=== PATIENT | female | born 1965 | race Caucasian/White ===

== ENCOUNTER 2017-10-16 16:18 | Inpatient (IN) | payer BC ==
[~2017-10-16] VITALS: Ht 167.6 cm; Wt 100.0 kg
[~2017-10-16 16:18] MED LIST: CYCL-1 PO; HYDR-569 PO
[2017-10-16 17:37] LABS: BASOPHILS % (AUTO) 0.2 % (0-1); EOSINOPHILS # (AUTO) 0.3 X10'3 (0-0.9); EOSINOPHILS % (AUTO) 2.5 % (0-6); HEMOGLOBIN 12.9 g/dl (12.0-16.0); LYMPHOCYTES # (AUTO) 1.8 X10'3 (1.1-4.8); LYMPHOCYTES % (AUTO) 17.2 % (21-51); MEAN CORPUSCULAR HEMOGLOBIN 30.8 PG (27.0-31.0); MEAN CORPUSCULAR HGB CONC 34.8 % (33.0-36.5); MEAN CORPUSCULAR VOLUME 88.6 FL (78-98); MEAN PLATELET VOLUME 7.4 FL (7.4-10.4); MONOCYTES # (AUTO) 0.5 X10'3 (0-0.9); MONOCYTES % (AUTO) 5.2 % (2-12); NEUTROPHILS # (AUTO) 7.8 X10'3 (1.8-7.7); NEUTROPHILS % (AUTO) 74.9 % (42-75); PLATELET COUNT 321 X10'3 (140-440); RED BLOOD COUNT 4.17 X10'6 (4.20-5.60); RED CELL DISTRIBUTION WIDTH 13.6 % (11.5-14.5); WHITE BLOOD COUNT 10.4 X10'3 (4.5-11.0)
[2017-10-16 17:47] LABS: PARTIAL THROMBOPLASTIN TIME 26 SECONDS (22-32); PROTHROMBIN TIME 10.5 SECONDS (9.0-12.0)
[2017-10-16] MEDS ORDERED: METO-477 PO (17:52)
[2017-10-16] MEDS ORDERED: METF500T PO (17:52)
[2017-10-16] MEDS ORDERED: LOSA25TA96 PO (17:52)
[2017-10-16] MEDS ORDERED: GABA-534 PO (17:52)
[2017-10-16] MEDS ORDERED: OMEP40CA37 PO (17:52)
[2017-10-16 17:53] LABS: ALANINE AMINOTRANSFERASE 30 U/L (12-78); ALBUMIN 3.9 G/DL (3.4-5.0); ALBUMIN/GLOBULIN RATIO 1.1 (1.1-1.5); ALKALINE PHOSPHATASE 84 IU/L (46-116); ANION GAP 9 (8-16); ASPARTATE AMINO TRANSFERASE 15 U/L (10-37); BILIRUBIN,TOTAL 0.3 MG/DL (0.1-1.0); BLOOD UREA NITROGEN 28 MG/DL (7-18); BUN/CREATININE RATIO 28.6 (6.6-38.0); CALCIUM 9.5 MG/DL (8.5-10.1); CHLORIDE 103 MMOL/L (99-107); CREATININE 0.98 MG/DL (0.40-0.90); GLUCOSE 130 MG/DL (70-104); MAGNESIUM 2.2 MG/DL (1.5-2.4); SODIUM 144 MMOL/L (135-145); TOTAL CARBON DIOXIDE 32.3 MMOL/L (24-32); TOTAL PROTEIN 7.4 G/DL (6.4-8.2); eGFR 60 ML/MIN
[2017-10-16 17:57] LABS: POTASSIUM 2.3 MMOL/L (3.5-5.1)
[2017-10-16] MEDS ORDERED: PHEN37.590 PO (18:00)
[2017-10-16] MEDS ORDERED: TOPI25TA15 PO (18:00)
[2017-10-16] MEDS ORDERED: potassium Cl 20 mEq SR tablet PO STA (18:10)
[2017-10-16] MEDS ORDERED: potassium 10mEq/100ml NS w/LIDOcaine (10mg/bag) IV ONE (18:10)
[2017-10-16] MEDS ORDERED: magnesium 2GM in 50ml NS 50 ML IV ONE (18:10)
[2017-10-16] MEDS ORDERED: normal saline 1000ml 1,000 ML IV ONE (18:15)
[2017-10-16 18:28] LABS: CLARITY,URINE Clear (Clear); COLOR,URINE Yellow (Yellow); GLUCOSE, URINE Negative (Neg); KETONES,URINE Negative (Neg); LEUKOCYTE ESTERASE ,URINE Negative (Neg); NITRITES, URINE Negative (Neg); OCCULT BLOOD,URINE Negative (Neg); PROTEIN,URINE Negative (Neg); UROBILINOGEN,URINE 0.2 E.U/dL (0.2-1.0)
[2017-10-16 18:30] LABS: UA COLLECTION TYPE CLN CATCH MIDSTREAM
[2017-10-16] MEDS ORDERED: acetaminophen 325mg tablet PO ONE (21:05)
[2017-10-16 21:41] LABS: PHOSPHORUS 3.5 MG/DL (2.3-4.5)
[2017-10-16] MEDS ORDERED: glucagon, human recombinant 1mg kit SUBCUT PRN (21:45)
[2017-10-16] MEDS ORDERED: magnesium hydroxide 30ml (MOM) UD suspension PO PRN (21:45)
[2017-10-16] MEDS ORDERED: potassium Cl 40MEQ/NS 500ml 500 ML IV PRN ×2 (21:45)
[2017-10-16] MEDS ORDERED: dextrose 50%-water 50ml dispensing syringe IV PRN ×2 (21:45)
[2017-10-16] MEDS ORDERED: dextrose ORAL solution 15 GM/59 ML bottle PO PRN ×2 (21:45)
[2017-10-16] MEDS ORDERED: insulin Lispro (HumaLOG) vial - multi-dose SQ SCH (21:45)
[2017-10-16] MEDS ORDERED: mag hydrox/Alum hydrox/simeth 30ml oral suspension PO PRN (21:45)
[2017-10-16] MEDS ORDERED: acetaminophen 325mg tablet PO PRN ×2 (21:45)
[2017-10-16] MEDS ORDERED: MESSAGE TO PHARMACY PO ONE (21:45)
[2017-10-16] MEDS ORDERED: ondansetron/PF 4mg/2ml inj IV PRN (21:45)
[2017-10-17] MEDS: potassium Cl 20 mEq SR tablet PO PRN ×3 (03:48→15:35)
[2017-10-17 05:56] LABS: BASOPHILS % (AUTO) 0.4 % (0-1); EOSINOPHILS # (AUTO) 0.3 X10'3 (0-0.9); EOSINOPHILS % (AUTO) 3.7 % (0-6); HEMATOCRIT 34.8 % (35.0-45.0); HEMOGLOBIN 11.6 g/dl (12.0-16.0); LYMPHOCYTES # (AUTO) 2.5 X10'3 (1.1-4.8); LYMPHOCYTES % (AUTO) 32.1 % (21-51); MEAN CORPUSCULAR HEMOGLOBIN 30.3 PG (27.0-31.0); MEAN CORPUSCULAR HGB CONC 33.4 % (33.0-36.5); MEAN CORPUSCULAR VOLUME 90.9 FL (78-98); MEAN PLATELET VOLUME 7.5 FL (7.4-10.4); MONOCYTES # (AUTO) 0.6 X10'3 (0-0.9); MONOCYTES % (AUTO) 7.2 % (2-12); NEUTROPHILS # (AUTO) 4.4 X10'3 (1.8-7.7); NEUTROPHILS % (AUTO) 56.6 % (42-75); PLATELET COUNT 283 X10'3 (140-440); RED BLOOD COUNT 3.83 X10'6 (4.20-5.60); RED CELL DISTRIBUTION WIDTH 13.5 % (11.5-14.5); WHITE BLOOD COUNT 7.8 X10'3 (4.5-11.0)
[2017-10-17 06:11] LABS: ALBUMIN 3.1 G/DL (3.4-5.0); ANION GAP 9 (8-16); BLOOD UREA NITROGEN 24 MG/DL (7-18); BUN/CREATININE RATIO 25.8 (6.6-38.0); CALCIUM 8.8 MG/DL (8.5-10.1); CHLORIDE 107 MMOL/L (99-107); CREATININE 0.93 MG/DL (0.40-0.90); GLUCOSE 118 MG/DL (70-104); MAGNESIUM 2.1 MG/DL (1.5-2.4); POTASSIUM 3.2 MMOL/L (3.5-5.1); SODIUM 147 MMOL/L (135-145); TOTAL CARBON DIOXIDE 30.7 MMOL/L (24-32); eGFR 64 ML/MIN
[2017-10-17] MEDS ORDERED: losartan 25mg tablet PO SCH (08:00)
[2017-10-17] MEDS ORDERED: topiramate 25mg tablet PO SCH (08:00)
[2017-10-17] MEDS: gabapentin 400mg capsule PO SCH ×4 (10:39→22:43)
[2017-10-17 11:00] VITALS: BP 132/69
[2017-10-17] MEDS: Potassium Cl inj 20 MEQ in dextrose 5%-water 990 ML IV SCH ×2 (11:40→14:05)
[2017-10-17 15:00] VITALS: BP 114/60
[2017-10-17] MEDS: HYDROcodone/acetaminophen 5mg/325mg tablet PO PRN (15:39)
[2017-10-17 19:00] VITALS: BP 124/62
[2017-10-17] MEDS ORDERED: insulin glargine (Lantus) pen - multi-dose SQ SCH (21:00)
[2017-10-17 23:00] VITALS: BP 126/72
[2017-10-18 03:00] VITALS: BP 101/59
[2017-10-18 06:07] LABS: BASOPHILS % (AUTO) 0.3 % (0-1); EOSINOPHILS # (AUTO) 0.3 X10'3 (0-0.9); HEMATOCRIT 34.6 % (35.0-45.0); HEMOGLOBIN 11.6 g/dl (12.0-16.0); LYMPHOCYTES # (AUTO) 1.7 X10'3 (1.1-4.8); LYMPHOCYTES % (AUTO) 24.6 % (21-51); MEAN CORPUSCULAR HEMOGLOBIN 29.9 PG (27.0-31.0); MEAN CORPUSCULAR HGB CONC 33.6 % (33.0-36.5); MEAN CORPUSCULAR VOLUME 88.8 FL (78-98); MEAN PLATELET VOLUME 7.4 FL (7.4-10.4); MONOCYTES # (AUTO) 0.4 X10'3 (0-0.9); MONOCYTES % (AUTO) 5.8 % (2-12); NEUTROPHILS # (AUTO) 4.5 X10'3 (1.8-7.7); NEUTROPHILS % (AUTO) 65.3 % (42-75); PLATELET COUNT 278 X10'3 (140-440); RED BLOOD COUNT 3.89 X10'6 (4.20-5.60); RED CELL DISTRIBUTION WIDTH 13.5 % (11.5-14.5); WHITE BLOOD COUNT 6.9 X10'3 (4.5-11.0)
[2017-10-18 06:25] LABS: ALBUMIN 3.1 G/DL (3.4-5.0); ANION GAP 9 (8-16); BLOOD UREA NITROGEN 17 MG/DL (7-18); BUN/CREATININE RATIO 22.4 (6.6-38.0); CALCIUM 8.6 MG/DL (8.5-10.1); CHLORIDE 109 MMOL/L (99-107); CREATININE 0.76 MG/DL (0.40-0.90); GLUCOSE 117 MG/DL (70-104); POTASSIUM 3.4 MMOL/L (3.5-5.1); SODIUM 146 MMOL/L (135-145); TOTAL CARBON DIOXIDE 27.9 MMOL/L (24-32); eGFR 81 ML/MIN
[2017-10-18 07:08] VITALS: BP 121/68
[2017-10-18] MEDS: gabapentin 400mg capsule PO SCH (07:13)
[2017-10-18] MEDS: potassium Cl 20 mEq SR tablet PO PRN ×2 (07:13→12:59)
[2017-10-18 11:00] VITALS: BP 133/77
[2017-10-18] MEDS: HYDROcodone/acetaminophen 5mg/325mg tablet PO PRN (12:59)
== END 2017-10-18 13:10 | disposition home or self-care (01) | DRG 640 ==
LOC: ER 16:18 → ED HOLD 21:43 → EDBEDREQ 10-17 07:36 → PCU 3S 10-17 09:00
PROVIDERS: ADMIT Internal Medicine; ATTEND Internal Medicine
DX: E87.6 Hypokalemia (principal); G93.40 Encephalopathy, unspecified; E86.0 Dehydration; E87.0 Hyperosmolality and hypernatremia; I95.9 Hypotension, unspecified; E11.9 Type 2 diabetes mellitus without complications; E86.9 Volume depletion, unspecified; E03.9 Hypothyroidism, unspecified; R20.8 Other disturbances of skin sensation; E87.5 Hyperkalemia; M54.5 Low back pain; G89.29 Other chronic pain; I10 Essential (primary) hypertension; Z79.899 Other long term (current) drug therapy; Z90.710 Acquired absence of both cervix and uterus; Z88.5 Allergy status to narcotic agent
CPT/HCPCS: 36415; 70450; 71045; 80048; 80053; 81003; 83735; 84100; 84132; 84443; 84484; 85025; 85610; 85730; 93005; 93306; 96360; 96361; 99285; J1815; J3480; J7030; J7070

== ENCOUNTER 2020-12-01 18:45 | Inpatient (IN) | payer BC ==
[~2020-12-01] VITALS: Ht 167.6 cm; Wt 113.0 kg
[~2020-12-01 18:45] MED LIST changes: -CYCL-1 PO; +GABA-534 PO; +HYDR-4383 PO; -HYDR-569 PO; +METF500T PO; +OMEP40CA21 PO; +PHEN37.590 PO; +TOPI25TA15 PO
[2020-12-01 19:23] LABS: BASOPHILS # (AUTO) 0.1 X10'3 (0-0.2); BASOPHILS % (AUTO) 0.7 % (0-1); EOSINOPHILS # (AUTO) 0.3 X10'3 (0-0.9); EOSINOPHILS % (AUTO) 3.8 % (0-6); HEMATOCRIT 39.1 % (35.0-45.0); HEMOGLOBIN 12.9 g/dl (12.0-16.0); LYMPHOCYTES # (AUTO) 2.7 X10'3 (1.1-4.8); LYMPHOCYTES % (AUTO) 32.8 % (21-51); MEAN CORPUSCULAR HEMOGLOBIN 29.4 PG (27.0-31.0); MEAN CORPUSCULAR HGB CONC 32.9 g/dL (33.0-36.5); MEAN CORPUSCULAR VOLUME 89.2 FL (78-98); MEAN PLATELET VOLUME 7.3 FL (7.4-10.4); MONOCYTES # (AUTO) 0.6 X10'3 (0-0.9); MONOCYTES % (AUTO) 7.2 % (2-12); NEUTROPHILS # (AUTO) 4.6 X10'3 (1.8-7.7); NEUTROPHILS % (AUTO) 55.5 % (42-75); PLATELET COUNT 318 X10'3 (140-440); RED BLOOD COUNT 4.39 X10'6 (4.20-5.60); RED CELL DISTRIBUTION WIDTH 13.4 % (11.5-14.5); WHITE BLOOD COUNT 8.2 X10'3 (4.5-11.0)
[2020-12-01 19:34] LABS: ALANINE AMINOTRANSFERASE 22 U/L (12-78); ALBUMIN 3.7 G/DL (3.4-5.0); ALBUMIN/GLOBULIN RATIO 1.1 (1.1-1.5); ALKALINE PHOSPHATASE 96 IU/L (46-116); ANION GAP 6 (8-16); ASPARTATE AMINO TRANSFERASE 13 U/L (10-37); BILIRUBIN,TOTAL 0.3 MG/DL (0.1-1.0); BLOOD UREA NITROGEN 13 MG/DL (7-18); BUN/CREATININE RATIO 15.9 (6.6-38.0); CALCIUM 8.8 MG/DL (8.5-10.1); CHLORIDE 108 MMOL/L (99-107); CREATININE 0.82 MG/DL (0.40-0.90); GLUCOSE 105 MG/DL (70-104); POTASSIUM 3.9 MMOL/L (3.5-5.1); SODIUM 144 MMOL/L (135-145); TOTAL CARBON DIOXIDE 29.6 MMOL/L (24-32); TOTAL PROTEIN 7.2 G/DL (6.4-8.2); eGFR 73 ML/MIN
[2020-12-01] MEDS ORDERED: acetaminophen 325mg tablet PO ONE (20:05)
[2020-12-01] MEDS ORDERED: nitroGLYCERIN 0.4mg SUBLingual tab SL STA (20:05)
[2020-12-01] MEDS ORDERED: hydrALAZINE 20mg/ml inj. IV ONE ×2 (20:35→22:30)
[2020-12-01] MEDS ORDERED: temazepam 15mg capsule PO PRN (21:00)
--- NOTE | 2020-12-01 21:28 | NUR ---
This program writer is a float RN. Patients Saline lock established, Hydralazine given slowly IV over one minute. Patient tollerated well. Saline lock was then flushed. Report given to primary RN.
[2020-12-01] MEDS ORDERED: HYDR-3972 PO (21:54)
[2020-12-01] MEDS ORDERED: magnesium hydroxide 30ml (MOM) UD suspension PO PRN (22:05)
[2020-12-01] MEDS ORDERED: mag hydrox/Alum hydrox/simeth 30ml oral suspension PO PRN (22:05)
[2020-12-01] MEDS ORDERED: bisacodyl 10mg suppository rectal RC PRN (22:05)
[2020-12-01] MEDS ORDERED: morphine 2 MG/ML inj. syringe IV PRN ×2 (22:05)
[2020-12-01] MEDS ORDERED: acetaminophen 650mg rectal suppository RC PRN (22:05)
[2020-12-01] MEDS ORDERED: HYDROmorphone inj. 0.5 MG/0.5 ML DISP.SYRIN IV PRN (22:05)
[2020-12-01] MEDS ORDERED: diphenhydrAMINE 25mg capsule PO PRN (22:05)
[2020-12-01] MEDS ORDERED: acetaminophen 325mg tablet PO PRN ×2 (22:05)
[2020-12-01] MEDS ORDERED: ondansetron/PF 4mg/2ml inj IV PRN (22:05)
[2020-12-01] MEDS ORDERED: HYDROcodone/acetaminophen 10/325mg tab PO PRN (22:05)
[2020-12-01] MEDS ORDERED: ondansetron 4mg rapidly disintigrating tab PO PRN (22:05)
[2020-12-01] MEDS ORDERED: HYDROcodone/acetaminophen 5mg/325mg tablet PO PRN (22:05)
[2020-12-01] MEDS ORDERED: diphenhydrAMINE 50 mg/ml inj IV PRN (22:05)
[2020-12-01 22:25] LABS: HEMOGLOBIN A1C 6.1 % (4.5-6.2)
[2020-12-01 22:28] LABS: PHOSPHORUS 3.6 MG/DL (2.3-4.5)
[2020-12-01 23:02] LABS: PARTIAL THROMBOPLASTIN TIME 29 SECONDS (22-32)
[2020-12-01 23:30] VITALS: BP 205/98
[2020-12-01] MEDS ORDERED: LOSA50TA3 PO (23:39)
[2020-12-01] MEDS ORDERED: METO25TA6 PO (23:39)
[2020-12-01] MEDS ORDERED: FLAX100032 PO (23:39)
[2020-12-01] MEDS ORDERED: OMEG-79 PO (23:39)
[2020-12-01] MEDS ORDERED: FLUT1DIS INH (23:39)
[2020-12-01] MEDS ORDERED: TIZA-189 PO (23:39)
[2020-12-01] MEDS ORDERED: ROSU20TA2 PO (23:39)
[2020-12-01] MEDS ORDERED: ALBU18HF2 INH (23:39)
[2020-12-01] MEDS ORDERED: METH-797 PO (23:39)
[2020-12-02 00:17] VITALS: BP 164/79
[2020-12-02] MEDS: LORazepam 1 MG tablet PO SCH ×3 (00:18→16:39)
[2020-12-02] MEDS: hydrALAZINE 20mg/ml inj. IV SCH ×3 (00:18→07:58)
--- NOTE | 2020-12-02 00:37 | NUR ---
Patient in room PCU 3015. I have received report from Karlos CHRISTIE and had the opportunity to ask questions and assume patient care.
[2020-12-02 01:00] VITALS: BP 140/63
[2020-12-02 01:32] LABS: ALANINE AMINOTRANSFERASE 24 U/L (12-78); ALBUMIN 3.6 G/DL (3.4-5.0); ALKALINE PHOSPHATASE 91 IU/L (46-116); ANION GAP 10 (8-16); ASPARTATE AMINO TRANSFERASE 9 U/L (10-37); BILIRUBIN,TOTAL 0.2 MG/DL (0.1-1.0); BLOOD UREA NITROGEN 11 MG/DL (7-18); BUN/CREATININE RATIO 13.9 (6.6-38.0); CALCIUM 8.8 MG/DL (8.5-10.1); CHLORIDE 107 MMOL/L (99-107); CREATININE 0.79 MG/DL (0.40-0.90); GLUCOSE 139 MG/DL (70-104); POTASSIUM 3.4 MMOL/L (3.5-5.1); SODIUM 144 MMOL/L (135-145); TOTAL CARBON DIOXIDE 26.7 MMOL/L (24-32); TOTAL PROTEIN 7.1 G/DL (6.4-8.2); eGFR 76 ML/MIN
[2020-12-02 01:36] LABS: CHOL/HDL RATIO 3.2 (0.00-4.99); CHOLESTEROL 184 MG/DL (0-200); HDL CHOLESTEROL 57 MG/DL (35-60); LDL CHOLESTEROL 84 MG/DL (50-100); TRIGLYCERIDES 230 MG/DL (20-135)
[2020-12-02 02:00] VITALS: BP 146/74
[2020-12-02] MEDS ORDERED: potassium Cl 20 mEq SR tablet PO PRN ×2 (02:20)
[2020-12-02] MEDS ORDERED: magnesium Cl slow-release 64mg tablet PO PRN (02:20)
[2020-12-02] MEDS ORDERED: magnesium 4gm in 100ml NS 100 ML IV PRN (02:20)
[2020-12-02] MEDS ORDERED: potassium Cl 40MEQ/1/2NS 520ml 520 ML IV PRN (02:20)
[2020-12-02 02:22] LABS: BASOPHILS % (AUTO) 0.3 % (0-1); EOSINOPHILS # (AUTO) 0.3 X10'3 (0-0.9); EOSINOPHILS % (AUTO) 3.2 % (0-6); HEMOGLOBIN 12.8 g/dl (12.0-16.0); LYMPHOCYTES # (AUTO) 2.1 X10'3 (1.1-4.8); LYMPHOCYTES % (AUTO) 22.9 % (21-51); MEAN CORPUSCULAR HGB CONC 33.8 g/dL (33.0-36.5); MEAN CORPUSCULAR VOLUME 88.7 FL (78-98); MEAN PLATELET VOLUME 7.5 FL (7.4-10.4); MONOCYTES # (AUTO) 0.7 X10'3 (0-0.9); MONOCYTES % (AUTO) 7.2 % (2-12); NEUTROPHILS # (AUTO) 6.1 X10'3 (1.8-7.7); NEUTROPHILS % (AUTO) 66.4 % (42-75); PLATELET COUNT 304 X10'3 (140-440); RED BLOOD COUNT 4.28 X10'6 (4.20-5.60); RED CELL DISTRIBUTION WIDTH 13.5 % (11.5-14.5); WHITE BLOOD COUNT 9.2 X10'3 (4.5-11.0)
[2020-12-02 06:00] VITALS: BP 145/85
--- NOTE | 2020-12-02 06:06 | NUR ---
Problems reprioritized. Patient report given, questions answered & plan of care reviewed with Lisset CHRISTIE.
--- NOTE | 2020-12-02 06:38 | NUR ---
Patient in room PCU 3015. I have received report from SHAHNAZ Robledo and had the opportunity to ask questions and assume patient care.
[2020-12-02] MEDS ORDERED: pantoprazole 40mg Tablet.DR PO SCH (07:30)
[2020-12-02] MEDS: heparin, porcine 5000 units/ml vial SQ SCH ×3 (08:00→16:00)
[2020-12-02] MEDS ORDERED: lisinopril 20mg tablet PO SCH (08:00)
[2020-12-02] MEDS ORDERED: furosemide 20 MG/2 ML vial IV SCH (08:00)
[2020-12-02] MEDS ORDERED: docusate sod 100mg capsule PO SCH (08:00)
[2020-12-02] MEDS ORDERED: K and/or MAG REPLACEMENT MC SCH (08:00)
[2020-12-02] MEDS ORDERED: amLODIPine 5mg tablet PO SCH ×2 (08:20→09:05)
--- NOTE | 2020-12-02 10:49 | NUR ---
notified. PAGER ID: [phone] MESSAGE: Re: Mayra Murphy. [id number]. CT HEAD; No acute intracranial abnormality. 2. 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 Thanks. Lisset. [id number].
[2020-12-02] MEDS ORDERED: IBUP-1986 PO (10:51)
[2020-12-02] MEDS ORDERED: METO50TA17 PO (10:51)
[2020-12-02] MEDS ORDERED: BUPR100T7 PO (10:51)
[2020-12-02] MEDS ORDERED: GABA-534 PO (10:51)
[2020-12-02 11:00] VITALS: BP 130/75
--- NOTE | 2020-12-02 16:48 | NUR ---
notified. awaiting md response. PAGER ID: [phone] MESSAGE: Re pt Mayra Murphy, Room 30`15 A, pt has headaach and unrelieved by Nohemi and Rony. head Ct read as well. Patient wondering what the DC plan is. Thanks. SHAHNAZ Fallon, [id number].
[2020-12-02] MEDS ORDERED: ketorolac trometh. 30mg/ml inj. IV ONE (16:50)
[2020-12-02] MEDS ORDERED: NOR5T PO (16:53)
[2020-12-02] MEDS ORDERED: PANT40TA54 PO (16:53)
--- NOTE | 2020-12-02 17:41 | NUR ---
Patient stable for discharge per md orders. Prescriptions called into [facility] pharmacy. IV cannula taken out. night monitor discontinued. Education, discharge instructions, and follow up discussed in detail with patient. All questions asked. Patient's belongings gathered and given to daughter at bedside. Patient ambulated out of room with daughter and seen leaving the premises.
== END 2020-12-02 17:39 | disposition home or self-care (01) | DRG 304 ==
LOC: ER 18:46 → ED HOLD 22:04 → UNDOADMIN 22:04 → PCU 3S 23:30 → ED HOLD 23:30
PROVIDERS: ADMIT Family Medicine; ATTEND Family Medicine
DX: I16.1 Hypertensive emergency (principal); I50.33 Acute on chronic diastolic (congestive) heart failure; Z68.41 Body mass index [BMI] 40.0-44.9, adult; I11.0 Hypertensive heart disease with heart failure; E66.01 Morbid (severe) obesity due to excess calories; E78.00 Pure hypercholesterolemia, unspecified; E78.5 Hyperlipidemia, unspecified; E87.6 Hypokalemia; F41.9 Anxiety disorder, unspecified; G89.4 Chronic pain syndrome; G43.909 Migraine, unspecified, not intractable, without status migrainosus; J44.9 Chronic obstructive pulmonary disease, unspecified; R73.03 Prediabetes; Z79.891 Long term (current) use of opiate analgesic; Z90.710 Acquired absence of both cervix and uterus; Z88.5 Allergy status to narcotic agent
CPT/HCPCS: 36415; 70450; 71045; 80053; 80061; 82948; 83036; 83735; 83880; 84100; 84484; 85025; 85610; 85730; 87081; 93005; 96374; 99285; G0378; J0360; J1885; J1940; J2405

== ENCOUNTER 2022-06-25 14:09 | Emergency (ER) | payer BC ==
[~2022-06-25] VITALS: Ht 167.6 cm; Wt 113.6 kg
[~2022-06-25 14:09] MED LIST changes: +ALBU18HF2 INH; +BUPR100T15 PO; +FLAX100032 PO; +FLUT1DIS INH; +HYDR-3972 PO; -HYDR-4383 PO; +IBUP-1986 PO; +LOSA50TA3 PO; -METF500T PO; +METH-797 PO; +METO50TA17 PO; +NOR5T PO; +OMEG-79 PO; -OMEP40CA21 PO; +PANT40TA54 PO; -PHEN37.590 PO; +ROSU20TA2 PO; -TOPI25TA15 PO
[2022-06-25 14:24] VITALS: BP 156/92
[2022-06-25 14:46] LABS: BASOPHILS % (AUTO) 0.2 % (0-1); EOSINOPHILS # (AUTO) 0.2 X10'3 (0-0.9); EOSINOPHILS % (AUTO) 1.9 % (0-6); HEMATOCRIT 42.3 % (35.0-45.0); HEMOGLOBIN 13.6 g/dl (12.0-16.0); LYMPHOCYTES # (AUTO) 1.2 X10'3 (1.1-4.8); LYMPHOCYTES % (AUTO) 10.1 % (21-51); MEAN CORPUSCULAR HEMOGLOBIN 28.7 PG (27.0-31.0); MEAN CORPUSCULAR HGB CONC 32.1 g/dL (33.0-36.5); MEAN CORPUSCULAR VOLUME 89.4 FL (78-98); MEAN PLATELET VOLUME 7.1 FL (7.4-10.4); MONOCYTES # (AUTO) 0.9 X10'3 (0-0.9); MONOCYTES % (AUTO) 7.5 % (2-12); NEUTROPHILS # (AUTO) 9.6 X10'3 (1.8-7.7); NEUTROPHILS % (AUTO) 80.3 % (42-75); PLATELET COUNT 302 X10'3 (140-440); RED BLOOD COUNT 4.73 X10'6 (4.20-5.60); RED CELL DISTRIBUTION WIDTH 13.3 % (11.5-14.5); WHITE BLOOD COUNT 11.9 X10'3 (4.5-11.0)
[2022-06-25 14:54] LABS: CLARITY,URINE SLIGHTLY CLOUDY (Clear); COLOR,URINE YELLOW (Yellow); GLUCOSE, URINE NEGATIVE (Neg); KETONES,URINE NEGATIVE (Neg); LEUKOCYTE ESTERASE ,URINE NEGATIVE (Neg); NITRITES, URINE NEGATIVE (Neg); OCCULT BLOOD,URINE MODERATE (Neg); PROTEIN,URINE NEGATIVE (Neg); UROBILINOGEN,URINE 0.2 E.U/dL (0.2-1.0)
[2022-06-25 15:02] LABS: ALANINE AMINOTRANSFERASE 26 U/L (12-78); ALBUMIN 3.7 G/DL (3.4-5.0); ALKALINE PHOSPHATASE 113 IU/L (46-116); ANION GAP 8 (8-16); ASPARTATE AMINO TRANSFERASE 13 U/L (10-37); BILIRUBIN,TOTAL 0.3 MG/DL (0.1-1.0); BLOOD UREA NITROGEN 23 MG/DL (7-18); BUN/CREATININE RATIO 21.3 (6.6-38.0); CALCIUM 8.9 MG/DL (8.5-10.1); CHLORIDE 107 MMOL/L (99-107); CREATININE 1.08 MG/DL (0.40-0.90); GLUCOSE 135 MG/DL (70-104); LIPASE < 50 U/L (73-393); POTASSIUM 4.2 MMOL/L (3.5-5.1); SODIUM 142 MMOL/L (135-145); TOTAL CARBON DIOXIDE 26.7 MMOL/L (24-32); TOTAL PROTEIN 7.4 G/DL (6.4-8.2); eGFR 53 ML/MIN
[2022-06-25 15:03] LABS: UA COLLECTION TYPE VOIDED
[2022-06-25 15:04] LABS: SQUAMOUS EPITHELIAL CELL,UR MANY /LPF (FEW)
[2022-06-25 15:05] LABS: RBC,URINE 20-50 /HPF (0-2)
[2022-06-25 15:06] LABS: BACTERIA,URINE 1+ /HPF (Neg)
[2022-06-25 15:07] LABS: URINE HCG NEGATIVE (NEG)
== END 2022-06-25 20:07 | disposition left against medical advice (07) ==
LOC: ER 14:09
DX: R33.9 Retention of urine, unspecified (principal); Z53.21 Procedure and treatment not carried out due to patient leaving prior to being seen by health care provider
CPT/HCPCS: 36415; 80053; 81001; 81025; 83690; 85025